=== PATIENT | male | born 1955 | race Caucasian/White ===

== ENCOUNTER → 2017-11-13 | Outpatient (CLI) | payer OTHER ==
[~2017-11-13] MED LIST: GABA-113 PO; IBUP-1050 PO; LSN25 PO; MULT-506 PO; OMEP20CA9 PO; PHEN-1043 PO; TOPI100T34 PO; TRAM-10 PO
[2017-11-13 12:49] LABS: BASO % 0.2 %; BASO ABS # 0.01 K/uL (0-0.2); EOS % 5.1 %; EOS ABS # 0.24 K/uL (0-0.5); HEMATOCRIT 43.4 % (42-52); HEMOGLOBIN 14.7 g/dL (14.0-18.0); IG# 0.01 K/uL (0.00-0.02); LYMPH ABS # 1.33 K/uL (1.2-3.4); MEAN CELL VOLUME 90.6 fL (80-100); MEAN CORPUSCULAR HEMOGLOBIN 30.7 pg (25-34); MEAN CORPUSCULAR HGB CONC 33.9 g/dl (32-36); MEAN PLATELET VOLUME 11.8 fL (7.4-10.4); MONO % 7.8 %; MONO ABS # 0.37 K/uL (0.11-0.59); NEUT % 58.7 %; NEUT ABS # 2.79 K/uL (1.4-6.5); PLATELET COUNT 159 K/uL (130-400); RED CELL DISTRIBUTION WIDTH CV 13.5 % (11.5-14.5); RED CELL DISTRIBUTION WIDTH SD 45.1 fL (36.4-46.3); WHITE BLOOD COUNT 4.75 K/uL (4.8-10.8)
[2017-11-13 13:26] LABS: HEMOGLOBIN A1C 7.6 % (4.5-5.6)
[2017-11-13 13:31] LABS: ALBUMIN 3.8 gm/dl (3.4-5.0); ALKALINE PHOSPHATASE 91 U/L (45-117); ALT/SGPT 27 U/L (12-78); AST/SGOT 15 U/L (15-37); BLOOD UREA NITROGEN 30 mg/dl (7-18); CALCIUM 8.3 mg/dl (8.5-10.1); CARBON DIOXIDE 26 mmol/L (21-32); CREATININE 1.09 mg/dl (0.60-1.40); GLUCOSE 163 mg/dl (70-99); POTASSIUM 4.1 mmol/L (3.5-5.1); SODIUM 139 mmol/L (136-145)
[2017-11-13 13:35] LABS: CHOLESTEROL 187 mg/dl (0-200); LDL CHOLESTEROL CALCULATED 114 mg/dl; TOTAL PROTEIN 6.7 gm/dl (6.4-8.2)
== END | disposition home or self-care (01) ==
LOC: C.LABBFT 09:18
PROVIDERS: ATTEND Physician Assistant Medical
DX: E11.9 Type 2 diabetes mellitus without complications (principal); Z12.5 Encounter for screening for malignant neoplasm of prostate

== ENCOUNTER → 2017-12-25 | Outpatient (CLI) | payer OTHER ==
[2017-12-25 16:45] LABS: BLOOD UREA NITROGEN 24 mg/dl (7-18)
== END | disposition home or self-care (01) ==
LOC: C.LABBFT 11:06
PROVIDERS: ATTEND Psychiatry & Neurology Neurology
DX: E11.9 Type 2 diabetes mellitus without complications (principal); G43.909 Migraine, unspecified, not intractable, without status migrainosus

== ENCOUNTER → 2017-12-27 | Outpatient (CLI) | payer OTHER ==
[~2017-12-27] MED LIST changes: +GADAVIST IV PRN
--- NOTE | 2017-12-27 10:24 | DIAGNOSTIC IMAGING REPORT ---
BRAIN COMBO CLINICAL HISTORY: R51 [id number] Arachnoid ] cyst COMPARISON STUDY: 11/19/2007 TECHNIQUE: Utilizing a 1.5 Olivia magnet and dedicated coil, multiplanar, multiecho imaging of the brain was performed pre and postcontrast administration. IV administration of 9.5 mL of Gadavist contrast was uneventful. FINDINGS: No change in the prior study. Diffusion images are considered negative for an acute ischemic event The small retrocerebellar CSF collection measuring 17 mm on the prior study is unchanged. Ventricular system is midline. There is no significant postcontrast enhancement. IMPRESSION: 1. Stable exam compared to the prior study of 2007. 2. Small residual retro cerebellar cerebellar CSF collection measuring 17 mm. 3. Study is otherwise entirely unremarkable and again unchanged from the prior study. The above report was generated using voice recognition software. It may contain grammatical, syntax or spelling errors. Electronically signed by: Tu Aguilera M.D. 12/27/2017 10:23 AM Dictated Date/Time: 12/27/2017 10:16 AM
== END | disposition home or self-care (01) ==
LOC: C.MRIBC 09:32
PROVIDERS: ATTEND Psychiatry & Neurology Neurology
DX: G93.0 Cerebral cysts (principal); R51 Headache

== ENCOUNTER 2021-09-11 06:53 | Inpatient (IN) ==
[2021-09-11] MEDS ORDERED: MoRPHine SULFATE 4 MG/ML 1 ML CARP\\VIAL IV STA ×2 (07:39→08:42)
[2021-09-11] MEDS ORDERED: ONDANSETRON INJ 2 MG/ML 2 ML VIAL IV STA (07:39)
--- NOTE | 2021-09-11 08:41 | Emergency Department Note ---
History of Present Illness General Chief complaint: Neck Injury/Pain Stated complaint: PAIN IN NECK AND ARM Time Seen by Provider: 09/11/21 07:32 Source: patient and family ( who is at bedside) Mode of arrival: ambulatory Limitations: no limitations History of Present Illness Maximum Pain Intensity: 8 This patient is a 66-year-old male who has had ongoing neck issues secondary to the discs. He is followed by Dr. Shah and will schedule of surgery for the last 15 months that keeps getting canceled due to Covid related issues. He has had significant pain over the last couple days at night he could not sleep at all. It radiates down his left arm. No new numbness weakness no fever chills no new trauma no chest pain shortness breath abdominal pain he has had the Covid vaccine. No lower extremity pain or swelling or numbness or weakness. The patient is are very frustrated and are asking to see Dr. Shah Home Medications Medication Instructions Recorded Confirmed Type xaifutczftkb-nec-nwvol acid-vit 1 tab PO QAM 11/05/20 09/11/21 History K-lycop 400 mcg-20 mcg-370 mcg tablet (One-A-Day Men's 50 Plus) oxycodone 5 mg tablet 5 mg PO Q8H PRN 08/10/21 09/11/21 History lisinopril 5 mg tablet 5 mg PO QAM 08/29/21 09/11/21 History metformin 500 mg tablet,extended 500 mg PO TID 08/29/21 09/11/21 History release 24hr omeprazole 20 mg capsule,delayed 20 mg PO QAM 08/29/21 09/11/21 History release rosuvastatin 10 mg tablet 10 mg PO HS 08/29/21 09/11/21 History Allergies Allergy/AdvReac Type Severity Reaction Status Date / Time No Known Allergies Allergy Verified 08/29/21 09:37 Past Med/Surg History Medical History Arachnoid cyst Per 11/11/20 cervical spine MRI: "Stable enlargement of the posterior extra-axial space of the posterior fossa. This could represent a prominent cisterna magna or retrocerebellar arachnoid cyst. This remains unchanged. " Chronic headaches Diabetes mellitus type II, controlled Hgb A1C 8.2 on 08/11/21 Metformin increased after 08/11/21 labs GERD (gastroesophageal reflux disease) Well controlled and stable Hyperlipidemia Hypertension Surgical History History of brain surgery Fluid cyst removed - around 2007 History of cardiac catheterization over 10 years ago - no stents needed History of cervical spinal surgery C5-6 fusion 1992 History of ear surgery History of inguinal hernia repair History of knee surgery History of nasal septoplasty History of shoulder surgery History of vasectomy Family History Father Colorectal cancer Hypertension Mother Hypertension Grandfather (Maternal) Myocardial infarction Grandfather (Paternal) Myocardial infarction Brother Blood dyscrasia Other Diabetes Social History Smoking Status: Never smoker Second Hand Exposure: No; Hx Alcohol Use: No Hx Substance Use: No Preferred Language: Greek Communication Ability: Effective Visual Impairment: No Limitations Hearing Ability: Normal Drag Down Required: No Beliefs That Will Affect Care: None marital status: Current Living Situation: Spouse current occupational status: employed current occupation: [employer] Feels Safe at Home: Yes caffeine: No Assistive Devices: Hearing Aid - Bilateral Review of Systems A total of 10 systems reviewed and were otherwise negative Physical Exam Vital Signs Vital Signs - 24 hr 09/11/21 06:58 09/11/21 07:58 09/11/21 08:00 Temperature 36.5 C Temperature Source Temporal Artery Scan Pulse Rate 101 H Pulse Rate [Finger] 98 H Respiratory Rate 18 16 Respiratory Effort / Characteristics Non-Labored Spontaneous Respiratory Depth Normal Respiratory Pattern Regular Blood Pressure 205/105 H Blood Pressure [Right Arm] 155/96 H Blood Pressure Mean 138 Blood Pressure Mean [Right Arm] 115 Blood Pressure Position Sitting Pulse Oximetry 97 98 Oxygen Delivery Method Room Air Room Air Room Air Sepsis Recent Fever Within 48 Hours No Sepsis New/Unexplained Change in Mental Status N/A Sepsis Action Taken by Nursing No Action Required 09/11/21 08:47 Temperature Temperature Source Pulse Rate Pulse Rate [Finger] Respiratory Rate Respiratory Effort / Characteristics Respiratory Depth Respiratory Pattern Blood Pressure Blood Pressure [Right Arm] Blood Pressure Mean Blood Pressure Mean [Right Arm] Blood Pressure Position Pulse Oximetry Oxygen Delivery Method Room Air Sepsis Recent Fever Within 48 Hours Sepsis New/Unexplained Change in Mental Status Sepsis Action Taken by Nursing General: Well developed well nourished middle-age male who appears in no acute distress, breathing comfortably on room air. Normal speech HEENT: Normal cephalic atraumatic. Pupils are equal round and reactive to light. Extraocular movements are intact. Oropharynx is pink with moist mucous membranes. No swelling of the mouth lips or tongue. Neck: Supple with a midline trachea. No meningeal signs or stiffness, no JVD or bruits. No Stridor. Chest: Clear to auscultation bilaterally. No wheezes or rhonchi. No increased work of breathing. Heart: Regular rate and rhythm without murmurs or gallops. Abdomen: Soft nontender, nondistended without rebound guarding or rigidity. Extremities: No cyanosis clubbing or edema. No calf tenderness or assymetry Spine/Back. Non tender to palpation. No CVA tenderness Skin: Good turgor without rashes. Neurologic exam: Cranial nerves two through 12 are intact. Motor and sensation are intact and symmetrical throughout. Course Administered Medications Discontinued Medications Morphine Sulfate (Morphine Sulfate 4 Mg/Ml 1 Ml Carp\\Vial) 4 mg IV NOW STA Stop: 09/11/21 07:40 Last Admin: 09/11/21 07:51 Dose: 4 mg Documented by: [id number] Morphine Sulfate (Morphine Sulfate 4 Mg/Ml 1 Ml Carp\\Vial) 4 mg IV NOW STA Stop: 09/11/21 08:43 Last Admin: 09/11/21 08:58 Dose: 4 mg Documented by: [id number] Ondansetron HCl (Ondansetron Inj 2 Mg/Ml 2 Ml Vial) 4 mg IV NOW STA Stop: 09/11/21 07:40 Last Admin: 09/11/21 07:51 Dose: 4 mg Documented by: [id number] Medical Decision Making Differential Diagnosis Cerival disk disease, infection, intractible pain, cord compression, fracture Medical Records Attestation: I reviewed the patient's medical records. Home Medications Current Medication List: was personally reviewed by me Laboratory Data Attestation: I reviewed the patient's lab results. Result diagrams: 09/11/21 07:55 09/11/21 07:55 Lab Results 09/11/21 09/11/21 09/11/21 Range/Units 07:55 07:55 07:55 WBC 6.65 (4.8-10.8) K/uL RBC 4.54 L (4.7-6.1) M/uL Hgb 13.7 L (14.0-18.0) g/dL Hct 41.8 L (42-52) % MCV 92.1 (80-100) fL MCH 30.2 (25-34) pg MCHC 32.8 (32-36) g/dL RDW Std Deviation 45.6 (36.4-46.3) fL RDW Coeff of Vadim 13.7 (11.5-14.5) % Plt Count 195 (130-400) K/uL MPV 11.8 H (7.4-10.4) fL Immature Gran % (Auto) 0.3 % Neut % (Auto) 65.5 % Lymph % (Auto) 18.9 % [place] % (Auto) 9.3 % Eos % (Auto) 5.7 % Baso % (Auto) 0.3 % Neut # (Auto) 4.35 (1.4-6.5) K/uL Lymph # (Auto) 1.26 (1.2-3.4) K/uL [place] # (Auto) 0.62 H (0.11-0.59) K/uL Eos # (Auto) 0.38 (0-0.5) K/uL Baso # (Auto) 0.02 (0-0.2) K/uL Immature Gran # (Auto) 0.02 (0.00-0.02) K/uL PT 9.8 (9.0-12.0) Seconds INR 1.0 (0.9-1.1) APTT 25.1 (21.0-31.0) Seconds PTT Ratio 1.0 Sodium 143 (136-145) mmol/L Potassium (3.5-5.1) mmol/L Chloride 109 H (98-107) mmol/L Carbon Dioxide 24 (21-32) mmol/L Anion Gap 10.0 (3-11) BUN 20 H (7-18) mg/dl Creatinine 1.17 (0.6-1.4) mg/dl Est Cr Clr Drug Dosing 72.0 ml/min Est GFR ( Amer) 75.4 ml/min Est GFR (Non-Af Amer) 65.0 ml/min BUN/Creatinine Ratio 16.8 (10-20) Glucose 245 H (70-99) mg/dl Calcium 8.8 (8.5-10.1) mg/dl Total Bilirubin 0.7 (0.2-1) mg/dl AST (15-37) U/L ALT 34 (12-78) Alkaline Phosphatase 86 (45-117) U/L Total Protein 6.7 (6.4-8.2) gm/dl Albumin 3.4 (3.4-5.0) gm/dl Globulin 3.3 (2.5-4.0) gm/dl Albumin/Globulin Ratio 1.0 (0.9-2) SARS-CoV-2, RNA, NAAT (NEGATIVE) 09/11/21 Range/Units 09:00 WBC (4.8-10.8) K/uL RBC (4.7-6.1) M/uL Hgb (14.0-18.0) g/dL Hct (42-52) % MCV (80-100) fL MCH (25-34) pg MCHC (32-36) g/dL RDW Std Deviation (36.4-46.3) fL RDW Coeff of Vadim (11.5-14.5) % Plt Count (130-400) K/uL MPV (7.4-10.4) fL Immature Gran % (Auto) % Neut % (Auto) % Lymph % (Auto) % [place] % (Auto) % Eos % (Auto) % Baso % (Auto) % Neut # (Auto) (1.4-6.5) K/uL Lymph # (Auto) (1.2-3.4) K/uL [place] # (Auto) (0.11-0.59) K/uL Eos # (Auto) (0-0.5) K/uL Baso # (Auto) (0-0.2) K/uL Immature Gran # (Auto) (0.00-0.02) K/uL PT (9.0-12.0) Seconds INR (0.9-1.1) APTT (21.0-31.0) Seconds PTT Ratio Sodium (136-145) mmol/L Potassium (3.5-5.1) mmol/L Chloride (98-107) mmol/L Carbon Dioxide (21-32) mmol/L Anion Gap (3-11) BUN (7-18) mg/dl Creatinine (0.6-1.4) mg/dl Est Cr Clr Drug Dosing ml/min Est GFR ( Amer) ml/min Est GFR (Non-Af Amer) ml/min BUN/Creatinine Ratio (10-20) Glucose (70-99) mg/dl Calcium (8.5-10.1) mg/dl Total Bilirubin (0.2-1) mg/dl AST (15-37) U/L ALT (12-78) Alkaline Phosphatase (45-117) U/L Total Protein (6.4-8.2) gm/dl Albumin (3.4-5.0) gm/dl Globulin (2.5-4.0) gm/dl Albumin/Globulin Ratio (0.9-2) SARS-CoV-2, RNA, NAAT NEGATIVE (NEGATIVE) ECG Data Attestation: I personally reviewed and interpreted this ECG as follows: Indication: + other (pre-op) Rate (beats per minute): 87 Rhythm: + normal sinus ECG Intervals/blocks: + Normal QRS, + Normal QT and + Normal MO ECG [place]: + Normal ECG ST segments: + Normal ST segments ECG Findings: + PACs; no PVCs Comparison ECG Date: from (08/11/21) Change: no significant change MDM Narrative This patient comes in complaining of worsening neck pain that radiates down his left arm. Its been chronic but has been getting worse. He is unfortunately be en unable to get surgery. Is given to the point where he is in severe pain at home and cannot sleep. He has no new neurologic deficit. IV access was established and he was given morphine 4 mg IV and Zofran 4 mg IV this helped but he did require additional morphine 4 mg I did talk to Dr. Shah who does want to admit him is can operate on him due to his significant pain and not doing well as an outpatient. I did do a preop blood work was also obtained as well as Covid testing and an EKG and there is no acute finding except for PACs. He will be admitted for pain management and operative care by Dr. Shah. Impression & Plan Neck pain, Cervical disc disease, Arm pain, left, Lab test negative for COVID- 19 virus Discharge Plan Visit Data Chief Complaint: Neck Injury/Pain Stated Complaint: PAIN IN NECK AND ARM ED Provider: Keshawn Metzger Discharge Problem: Neck pain, Cervical disc disease, Arm pain, left, Lab test negative for COVID- 19 virus Forms Stand Alone Forms: My [facility] [place] DIGITAL MEDIA Prescriptions Prescriptions: No Action One-A-Day Men's 50 Plus 400-20-370 mcg tablet 1 tab PO QAM RF: 0 oxycodone 5 mg tablet 5 mg PO Q8H PRN (Reason: Pain) RF: 0 omeprazole [Prilosec] 20 mg Capsule,Delayed Release(Dr/Ec) 20 mg PO QAM RF: 0 lisinopril 5 mg tablet 5 mg PO QAM RF: 0 rosuvastatin 10 mg tablet 10 mg PO HS RF: 0 metformin 500 mg tablet extended release 24hr 500 mg PO TID RF: 0 Referrals Referrals: Pippa Portillo CRNP [Primary Care Provider] -
[2021-09-11 09:01] LABS: Basophils # (auto) 0.02 K/uL (0-0.2); Basophils % (auto) 0.3 %; Eosinophils # (auto) 0.38 K/uL (0-0.5); Eosinophils % (auto) 5.7 %; Hematocrit (blood only) 41.8 % (42-52); Hemoglobin 13.7 g/dL (14.0-18.0); Immature Granulocytes # (auto) 0.02 K/uL (0.00-0.02); Immature Granulocytes % (auto) 0.3 %; Lymphocytes # (auto) 1.26 K/uL (1.2-3.4); Lymphocytes % (auto) 18.9 %; Mean Corpuscular Hemoglobin 30.2 pg (25-34); Mean Corpuscular Hgb Conc 32.8 g/dL (32-36); Mean Corpuscular Volume 92.1 fL (80-100); Mean Platelet Volume 11.8 fL (7.4-10.4); Monocytes # (auto) 0.62 K/uL (0.11-0.59); Monocytes % (auto) 9.3 %; Neutrophils # (auto) 4.35 K/uL (1.4-6.5); Neutrophils % (auto) 65.5 %; Platelet Count 195 K/uL (130-400); RDW Coefficient of Variation 13.7 % (11.5-14.5); RDW Standard Deviation 45.6 fL (36.4-46.3); Red Blood Count 4.54 M/uL (4.7-6.1); White Blood Count 6.65 K/uL (4.8-10.8)
[2021-09-11 09:08] LABS: Partial Thromboplastin Time 25.1 Seconds (21.0-31.0); Prothrombin Time 9.8 Seconds (9.0-12.0)
[2021-09-11 09:22] LABS: Albumin Level 3.4 gm/dl (3.4-5.0); BUN Creatinine Ratio 16.8 (10-20); Calcium 8.8 mg/dl (8.5-10.1); Est GFR (African American) 75.4 ml/min
[2021-09-11 09:39] LABS: Bilirubin,Total 0.7 mg/dl (0.2-1); Globulin 3.3 gm/dl (2.5-4.0); Total Protein 6.7 gm/dl (6.4-8.2)
[2021-09-11] MEDS ORDERED: ONDANSETRON INJ 2 MG/ML 2 ML VIAL IV PRN (11:12)
[2021-09-11] MEDS ORDERED: LORazepam 0.5 MG/1 ML VIAL IV PRN (11:12)
[2021-09-11] MEDS ORDERED: ACETAMINOPHEN 500 MG TAB PO PRN (11:12)
[2021-09-11] MEDS ORDERED: ONDANSETRON 4 MG OD TAB PO PRN (11:12)
[2021-09-11] MEDS ORDERED: HYDROmorphone INJ 1 MG/ML SYRINGE IV PRN (11:12)
[2021-09-11] MEDS ORDERED: METOCLOPRAMIDE HCL INJ 5 MG/ML 2 ML VIAL IV PRN (11:12)
[2021-09-11] MEDS ORDERED: LORazepam 0.5 MG TAB PO PRN (11:12)
[2021-09-11] MEDS ORDERED: ALUMINUM/MAGNESIUM SUSP 30 ML UDC PO PRN (11:12)
[2021-09-11] MEDS ORDERED: PROMETHAZINE HCL 12.5 MG in SODIUM CHLORIDE 0.9% 50 ML IV PRN (11:12)
[2021-09-11] MEDS ORDERED: MAGNESIUM HYDROXIDE SUSP 30 ML UDC PO PRN (11:12)
[2021-09-11] MEDS ORDERED: PHARMACY GLYCEMIC MGMT CONSULT PRN (11:12)
[2021-09-11] MEDS ORDERED: diphenhydrAMINE Capsule 25 MG CAP PO PRN (11:12)
[2021-09-11] MEDS ORDERED: hydrOXYzine HCl 25 MG TAB PO PRN (11:12)
[2021-09-11] MEDS ORDERED: HYDROmorphone INJ 0.5 MG/0.5 ML SYR IV PRN (11:12)
[2021-09-11] MEDS ORDERED: NALOXONE HCL 0.4 MG/1 ML VIAL/CARP IV PRN (11:12)
[2021-09-11] MEDS ORDERED: oxyCODONE HCL IR 5 MG TAB (IMMEDIATE RELEASE) PO PRN (11:12)
[2021-09-11] MEDS ORDERED: ACETAMINOPHEN 1,000 MG/100 ML VIAL IV PRN (11:12)
[2021-09-11] MEDS ORDERED: traMADol HCL 50 MG TABLET PO PRN (11:12)
[2021-09-11] MEDS ORDERED: LANTUS PER UNIT CHARGE SQ STA (11:39)
[2021-09-11] MEDS ORDERED: INSULIN GLARGINE SOLOSTAR 100 UNITS/ML 3 ML PEN SC STA ×2 (11:40→12:32)
[2021-09-11] MEDS ORDERED: CARBOHYDRATES FOR HYPOGLYCEMIA PO PRN (11:45)
[2021-09-11] MEDS ORDERED: GLUCOSE 40% GEL 15 GM TUBE PO PRN (11:45)
[2021-09-11] MEDS ORDERED: GLUCOSE 10 TABS/TUBE PO PRN (11:45)
[2021-09-11] MEDS ORDERED: DEXTROSE 50% 50 ML SYRINGE IV PRN (11:45)
[2021-09-11] MEDS ORDERED: GLUCAGON FOR INJ 1 MG VIAL IM PRN (11:45)
[2021-09-11] MEDS: INSULIN ASPART PER UNIT SC SCH ×3 (12:47→21:03)
[2021-09-11] MEDS: MULTIVITAMIN TAB PO SCH (12:48)
[2021-09-11] MEDS: lisinopril 5 MG TAB PO SCH (12:48)
[2021-09-11] MEDS: PANTOprazole 40 MG TAB PO SCH (12:48)
[2021-09-11] MEDS: SODIUM CHLORIDE 0.9% 1000ML 1,000 ML IV SCH (13:00)
--- NOTE | 2021-09-11 14:41 | Pharmacy Report ---
Pharmacy Glycemic Short Note 2 - Date of Service September 11, 2021 - Glycemic Short BSG Results (Last 24 hours): 09/11/21 09/11/21 07:55 12:23 Glucose 245 H POC Glucose 138 H OUTPATIENT ANTIDIABETIC REGIMEN: * Metformin 500 mg PO TIDM * HbA1c = 8.2% (08/11/21) ASSESSMENT: * 66 yo M admitted secondary to back pain. Plan is for patient to go to OR tomorrow morning with Dr. Shah. T2DM diet ordered for now but will be NPO after midnight. Pharmacy has been consulted to assist with perioperative insulin management. * BSG at lunch was 138 mg/dL. * Provided small basal dose since patient was eating lunch. * Novolog started based on weight/stress of 2. * Goal range of 110-140 mg/dL. * Hold outpatient oral T2DM meds. PLAN FOR INPATIENT GLYCEMIC CONTROL: * Hold outpatient oral diabetes medications * Basal insulin * Lantus 15 units SC x 1 * Bolus insulin * NovoLog per scale ACHS or Q6hrs while NPO * Goal Range: Low 110 mg/dL - High 140 mg/dL * Correction Factor: 25 mg/dL/unit * Nutritional / Prandial insulin per carb ratio of 1 unit per 8 grams CHO consumed PLAN FOR DISCHARGE: * To be determined
[2021-09-11] MEDS: ROSUVASTATIN CALCIUM 10 MG TAB PO SCH (21:06)
--- NOTE | 2021-09-11 22:05 | Electrocardiogram Report ---
Test Reason : Blood Pressure : / mmHG Vent. Rate : 087 BPM Atrial Rate : 087 BPM P-R Int : 150 ms QRS Dur : 090 ms QT Int : 376 ms P-R-T Axes : 022 004 004 degrees QTc Int : 452 ms Sinus rhythm with Premature atrial complexes Otherwise normal ECG When compared with ECG of 11-AUG-2021 11:22, No significant change was found Confirmed by Garo Cornell ([id number]) on 09/11/2021 10:04:55 PM Referred By: REFERRED SELF Confirmed By:Garo Cornell
[2021-09-12] MEDS: SODIUM CHLORIDE 0.9% 1000ML 1,000 ML IV SCH ×4 (02:17→22:04)
[2021-09-12] MEDS ORDERED: ceFAZolin 2000MG 2,000 MG/15 ML SYR IV SCH (06:00)
[2021-09-12] MEDS: INSULIN ASPART PER UNIT SC SCH ×5 (06:06→23:50)
[2021-09-12] MEDS ORDERED: fentaNYL citrate 100 MCG/2 ML VIAL ONE (07:24)
[2021-09-12] MEDS ORDERED: MIDAZOLAM HCL 1 MG/ML 2ML VIAL ONE (07:24)
[2021-09-12] MEDS ORDERED: HYDROmorphone INJ 2 MG/ML SYR/VIAL ONE (07:27)
[2021-09-12] MEDS ORDERED: ONDANSETRON INJ 2 MG/ML 2 ML VIAL ONE (07:28)
[2021-09-12] MEDS ORDERED: SUCCINYLCHOLINE CHLORIDE 20 MG/ML 10 ML VIAL IV ONE (07:28)
[2021-09-12] MEDS ORDERED: ROCURONIUM BROMIDE 10 MG/ML 5 ML VIAL IV ONE (07:28)
[2021-09-12] MEDS ORDERED: DEXAMETHASONE SOD INJ 4 MG/ML VIAL ONE (07:28)
--- NOTE | 2021-09-12 07:52 | History & Physical Bridge Note ---
Date of Service September 12, 2021 History & Physical Bridge Note I have examined the patient, reviewed the History & Physical and in the interval since the performance of the History & Physical I have noted the following changes of clinical significance: Anterior cervical decompression fusion C4 C5-C6-C7.
--- NOTE | 2021-09-12 07:55 | History & Physical Report ---
Date of Service September 12, 2021 Assessment & Plan (1) Herniation of cervical intervertebral disc with radiculopathy: Plan: Anterior cervical discectomy and fusion C4 C5-C6-C7. Admission and Anticipated Discharge Date Admission Date: September 11, 2021 History of Present Illness Chief Complaint: Neck and bilateral arm pain Primary Care Provider: LUIS Heaton This is a 66-year-old male who presents with chronic persistent cervical radiculopathy. After failing course of nonoperative care is here for surgical invention. Allergies Allergy/AdvReac Type Severity Reaction Status Date / Time No Known Allergies Allergy Verified 08/29/21 09:37 Home Medications Medication Instructions Recorded Confirmed Type zbpcrzqlpjhe-xpb-gqvos acid-vit 1 tab PO QAM 11/05/20 09/11/21 History K-lycop 400 mcg-20 mcg-370 mcg tablet (One-A-Day Men's 50 Plus) oxycodone 5 mg tablet 5 mg PO Q8H PRN 08/10/21 09/11/21 History lisinopril 5 mg tablet 5 mg PO QAM 08/29/21 09/11/21 History metformin 500 mg tablet,extended 500 mg PO TID 08/29/21 09/11/21 History release 24hr omeprazole 20 mg capsule,delayed 20 mg PO QAM 08/29/21 09/11/21 History release rosuvastatin 10 mg tablet 10 mg PO HS 08/29/21 09/11/21 History Past Med/Surg History Medical History Arachnoid cyst Per 11/11/20 cervical spine MRI: "Stable enlargement of the posterior extra- axial space of the posterior fossa. This could represent a prominent cisterna magna or retrocerebellar arachnoid cyst. This remains unchanged. " Chronic headaches Diabetes mellitus type II, controlled Hgb A1C 8.2 on 08/11/21 Metformin increased after 08/11/21 labs GERD (gastroesophageal reflux disease) Well controlled and stable Hyperlipidemia Hypertension Surgical History History of brain surgery Fluid cyst removed - around 2007 History of cardiac catheterization over 10 years ago - no stents needed History of cervical spinal surgery C5-6 fusion 1992 History of ear surgery History of inguinal hernia repair History of knee surgery History of nasal septoplasty History of shoulder surgery History of vasectomy Family History Father Colorectal cancer Hypertension Mother Hypertension Grandfather (Maternal) Myocardial infarction Grandfather (Paternal) Myocardial infarction Brother Blood dyscrasia Other Diabetes Social History Smoking Status: Never smoker Second Hand Exposure: No; Hx Alcohol Use: No Hx Substance Use: No Preferred Language: Singaporean Communication Ability: Effective Visual Impairment: No Limitations Hearing Ability: Normal Bag Bleacher Required: No Beliefs That Will Affect Care: None marital status: Current Living Situation: Spouse current occupational status: employed current occupation: [employer] Feels Safe at Home: Yes Safety Concerns: Feels Safe At This Time caffeine: No Assistive Devices: None Physical Exam Physical Exam: Patient is alert and oriented Heart regular in rhythm Lungs clear Results & Data ([facility]) Vital Signs (Past 12 Hours) Vital Signs Temp Pulse Resp BP Pulse Ox Pulse Ox 09/12/21 06:54 36.6 C 82 18 181/81 H 97 09/11/21 23:30 95 09/11/21 22:56 36.4 C L 75 16 169/85 H 95 Code Status & VTE Plan VTE Prophylaxis Plan VTE Prophylaxis will be ordered: Yes
[2021-09-12] MEDS ORDERED: ONDANSETRON INJ 2 MG/ML 2 ML VIAL IV PRN ×2 (08:00→12:30)
[2021-09-12] MEDS ORDERED: ATROPINE SULFATE 0.1 MG/ML 10ML SYR IV PRN (08:00)
[2021-09-12] MEDS ORDERED: ePHEDrine sulfate 50 MG/ML AMP IV PRN (08:00)
[2021-09-12] MEDS ORDERED: HYDROmorphone INJ 1 MG/ML SYRINGE IV PRN (08:00)
[2021-09-12] MEDS ORDERED: FAMOTIDINE/PF 20 MG/2 ML VIAL IV ONE (08:20)
[2021-09-12] MEDS ORDERED: SUGAMMADEX SODIUM 200 MG/2 ML VIAL IV ONE (08:20)
--- NOTE | 2021-09-12 08:37 | Pharmacy Report ---
Pharmacy Glycemic Short Note 2 - Date of Service September 12, 2021 - Glycemic Short BSG Results (Last 24 hours): 09/11/21 09/11/21 09/11/21 07:55 12:23 17:07 Glucose 245 H POC Glucose 138 H 87 09/11/21 09/12/21 20:37 05:51 Glucose POC Glucose 137 H 98 OUTPATIENT ANTIDIABETIC REGIMEN: * Metformin 500 mg PO TIDM * HbA1c = 8.2% (08/11/21) ASSESSMENT: 09/12 * Fasting BSG 93 this AM w/ 15 units Lantus on board - will wait until patient is post-op to order further basal insulin * Pt is currently NPO for planned discectomy/fusion today * Will need to be vigilant for use of steroid pita-op and post-op as this will influence insulin choices and doses * OK to continue current insulin doses, will reassess post-po 09/11 * 66 yo M admitted secondary to back pain. Plan is for patient to go to OR tomorrow morning with Dr. Shah. T2DM diet ordered for now but will be NPO after midnight. Pharmacy has been consulted to assist with perioperative insulin management. * BSG at lunch was 138 mg/dL. * Provided small basal dose since patient was eating lunch. * Novolog started based on weight/stress of 2. * Goal range of 110-140 mg/dL. * Hold outpatient oral T2DM meds. PLAN FOR INPATIENT GLYCEMIC CONTROL: * Hold outpatient oral diabetes medications * Basal insulin * to be determined post-op * Bolus insulin * NovoLog per scale ACHS or Q6hrs while NPO * Goal Range: Low 110 mg/dL - High 140 mg/dL * Correction Factor: 25 mg/dL/unit * Nutritional / Prandial insulin per carb ratio of 1 unit per 8 grams CHO consumed PLAN FOR DISCHARGE: * To be determined
[2021-09-12] MEDS ORDERED: METOCLOPRAMIDE HCL INJ 5 MG/ML 2 ML VIAL ONE (09:20)
[2021-09-12] MEDS ORDERED: FLOSEAL HEMOSTATIC MATRIX 10ML TOP ONE (09:28)
[2021-09-12] MEDS ORDERED: LARYING-O-JET KIT (LTA) ONE (09:40)
--- NOTE | 2021-09-12 09:55 | Hospitalist Consultation ---
Date of Consultation September 12, 2021 Assessment & Plan (1) Herniation of cervical intervertebral disc with radiculopathy: Now s/o ACDF C4-7 w/ Dr. Shah -post op care as per Ortho SP[facility] pain control, bowel regimen -nausea meds prn -check CBC, BMP in AM -continue IVFs for now, clears diet (2) Hypertension: BP elevated over usual due to pain -treat pain -give hydralazine 5mg IV x 1 now -continue home lisinopril -continue to follow BPs (3) Diabetes mellitus: expect hyperglycemia from dexamethsone Pharmacy consulted on admission insulin basal and bolus ordered most recent A1C 8.2%-not excellent control, f/u with PCP (4) Hyperlipidemia: continue statin (5) GERD (gastroesophageal reflux disease): continue PPI (6) Chronic headaches: pain control prn DVT proph-SCDs Dispo-continued stay med/surg, will follow along History of Present Illness Reason for Consultation: Medical Management Requesting Physician: Dr. Shah Attending Physician: Bernard Shah, DO History of Present Illness This pt is a 66 yo male with a a h/o Type 2 DM, HLD, HTN, GERD, chronic headaches, chronic bronchitis, Vitamin D deficiency and h/o kidney stones who is here with intractable cervical radiculopathy, now going for ACDF C4-7 today. I saw him after return from his surgery and he is having a bad headache, elevated BP, some nausea, and a sore throat from the ETT. Otherwise no CP or SOB. Last BM this AM. Allergies Allergy/AdvReac Type Severity Reaction Status Date / Time No Known Allergies Allergy Verified 08/29/21 09:37 Home Medications Medication Instructions Recorded Confirmed Type [id number] acid-vit 1 tab PO QAM 11/05/20 09/11/21 History K-lycop 400 mcg-20 mcg-370 mcg tablet (One-A-Day Men's 50 Plus) oxycodone 5 mg tablet 5 mg PO Q8H PRN 08/10/21 09/11/21 History lisinopril 5 mg tablet 5 mg PO QAM 08/29/21 09/11/21 History metformin 500 mg tablet,extended 500 mg PO TID 08/29/21 09/11/21 History release 24hr omeprazole 20 mg capsule,delayed 20 mg PO QAM 08/29/21 09/11/21 History release rosuvastatin 10 mg tablet 10 mg PO HS 08/29/21 09/11/21 History oxycodone 5 mg tablet 5 mg PO Q6H PRN #20 tab 09/12/21 Rx tramadol 50 mg tablet 50 mg PO Q6H PRN #20 tab 09/12/21 Rx Patient History Medical History (Updated 09/12/21 @ 09:53 by Diann Aguirre MD) Arachnoid cyst Per 11/11/20 cervical spine MRI: "Stable enlargement of the posterior extra-ax ial space of the posterior fossa. This could represent a prominent cisterna magna or retrocerebellar arachnoid cyst. This remains unchanged. " Chronic headaches Diabetes mellitus Diabetes mellitus type II, controlled Hgb A1C 8.2 on 08/11/21 Metformin increased after 08/11/21 labs GERD (gastroesophageal reflux disease) Well controlled and stable Hyperlipidemia Hypertension Surgical History History of brain surgery Fluid cyst removed - around 2007 History of cardiac catheterization over 10 years ago - no stents needed History of cervical spinal surgery C5-6 fusion 1992 History of ear surgery History of inguinal hernia repair History of knee surgery History of nasal septoplasty History of shoulder surgery History of vasectomy Family History Father Colorectal cancer Hypertension Mother Hypertension Grandfather (Maternal) Myocardial infarction Grandfather (Paternal) Myocardial infarction Brother Blood dyscrasia Other Diabetes Social History Smoking Status: Never smoker Second Hand Exposure: No; Hx Alcohol Use: No Hx Substance Use: No Preferred Language: Taiwanese Communication Ability: Effective Visual Impairment: No Limitations Hearing Ability: Normal Gold Marker Required: No Beliefs That Will Affect Care: None marital status: Current Living Situation: Spouse current occupational status: employed current occupation: [employer] Feels Safe at Home: Yes Safety Concerns: Feels Safe At This Time caffeine: No Assistive Devices: None Review of Systems Review of Systems: All systems reviewed & are unremarkable except as noted in HPI & below Physical Exam Constitutional: WD/WN, vitals as above Eyes: + anicteric sclerae Neck: trachea midline, no thyromegaly JJ drain and dressing on anterior neck, serosang fluid in drain Respiratory: normal respiratory effort, lungs clear to auscultation Cardiovascular: RRR, no murmur, no edema Chest (Breasts): Chest: normal inspection of chest Gastrointestinal (Abdomen): normal bowel sounds, soft, nontender, no hepatosplenomegaly Musculoskeletal: Extremities: extremities normal to inspection; no cyanosis and no clubbing Skin: no rashes, warm and dry Neurologic: moves all extremities and awake; no focal motor deficits Psychiatric: A+Ox3, euthymic affect Lymphatic: no lymphedema Results & Data Results & Data ([facility]) Vital Signs (Past 12 Hours) Vital Signs Temp Pulse Resp BP Pulse Ox Pulse Ox 09/12/21 08:02 36.6 C 76 18 194/103 H 95 09/12/21 06:54 36.6 C 82 18 181/81 H 97 09/11/21 23:30 95 09/11/21 22:56 36.4 C L 75 16 169/85 H 95 Laboratory Results Preop labs reviewed Diagnostic Findings Preop CXR reviewed ECG Additional Comments: Preop ECG with NSR, PACs, no ischemic changes PG Care Time/CCT Total # of Minutes Spent Total Time Spent with Patient: Total time spent is greater than 50% in coordination of care (as documented) at patient's floor/unit and/or counseling patient: Coding Level of Care Code 64551 Inpt Consult Level 3 Diagnoses Herniation of cervical intervertebral disc with radiculopathy M50.10 Hypertension I10 Diabetes mellitus E11.9 Hyperlipidemia E78.5 GERD (gastroesophageal reflux disease) K21.9 Chronic headaches R51
--- NOTE | 2021-09-12 10:26 | Operative Report ---
Post Operative Report Pre & Post Diagnosis Operation Date: 09/12/21 08:50 Pre-Op Diagnosis: Herniation of Cervical Intervertebral Disc with Radiculopathy C4-C5, C6-C7; Previous Fusion C5-C6 Post-Op Diagnosis: Herniation of Cervical Intervertebral Disc with Radiculopathy C4-C5, C6-C7; Previous Fusion C5-C6 I identified the patient and participated in the time-out.: Yes Procedure Operation Date: 09/12/21 08:50 Actual Procedures #1 anterior cervical discectomy with bilateral foraminotomies C4-5 C6-7. #2 anterior cervical arthrodesis C4-5 C6-C7. #3 placement of 8 mm spiral cage at C4-C5 and 7 mm cage at C6-C7 both filled with I factor. #4 application of louis plate and screws from C4-C7. Surgeon Bernard Shah, DO Cannery Worker Delphine Knox Estimated Blood Loss 10 Findings Consistent with Post-Op Diagnosis Specimens None Indications This is a 66-year-old male who presents with above-mentioned diagnosis after failing course of nonoperative care having severe radiculopathy is here for urgent surgery. Description of Procedure Patient was met with identified informed consent obtained. Patient was then taken to the operative suite underwent a patient placed in supine position on a Patricio table with head Willis quality control inspector heading. All bony prominences well-padded eyes inspected to ensure no external pressure placed upon them. This point the anterior cervical spine was prepped and draped in a sterile fashion. I then created a longitudinal incision along the right anterior aspect of the cervical spine. Blunt dissection was then carried out down to and exposing the anterior cervical spine from C4 to see 7. Self-retaining retractors placed. Then performed a complete discectomy of C4-C5 out to the uncovertebral's bilaterally. Blain distractor pins utilized to assist in visualization. Removed all posterior annular fibers longitudinal ligament bilateral foraminotomies performed. Endplates then burred to subcortical bleeding bone and an 8 mm Spira cage filled with I factor tapped in position. I then proceeded to C6-C7. Again complete discectomy performed out to the uncovertebral joints bilaterally. Blain distracting pins again utilized. Removed all posterior annular fibers longitudinal ligament bilateral foraminotomies performed. The endplates were then burred to subcortical being bone and a 7 mm spiral cage filled with I factor tapped in position. Distracting apparatus was removed all anterior osteophytes burred to a smooth cortical surface of 5 complete and screws applied with the assistance of fluoroscopy. The incision was then copiously irrigated explored to ensure no damage to surrounding structures remaining bleeding. 10 round JJ drain inserted. The incision was then closed with 1 Vicryl to fascia 2-0 Vicryl subcutaneously and 4 Monocryl for final skin closure. Steri-Strip sterile dressings placed. Patient will continue PACU stable condition. Please note spinal cord monitoring was utilized throughout the procedure no changes noted. Lastly Delphine Knox was present at the entire procedure and all the patient positioning complex portions of the surgery and final skin closure. I attest to the content of the Intraoperative Record and any orders documented therein. Any exceptions are noted below.
--- NOTE | 2021-09-12 10:59 | Fluoroscopy Report ---
FL cervical 2-3V CLINICAL HISTORY: C4-7 ACDF. Intraoperative fluoroscopic assistance COMPARISON STUDY: None. FLUOROSCOPY TIME: 12 seconds. FINDINGS: 2 fluoroscopic spot images of the cervical spine demonstrate anterior cervical discectomy a nd fusion from C4 through C7. The hardware appears intact. IMPRESSION: Fluoroscopic assistance provided for C4-C7 ACDF. ACT 112: Negative or not required by law. Electronically signed by: Jesus Alberto Houser M.D. 09/12/2021 10:57 AM
[2021-09-12] MEDS ORDERED: LABETALOL HCL IV 5 MG/ML 20ML IV ONE (11:18)
[2021-09-12] MEDS: LABETALOL HCL IV 5 MG/ML 20ML IV PRN ×2 (11:23→12:03)
[2021-09-12] MEDS: fentaNYL citrate 100 MCG/2 ML VIAL IV PRN ×2 (11:41→11:47)
[2021-09-12] MEDS ORDERED: DO NOT ADMINISTER PNEUMOCOCCAL VACCINE PRN (12:30)
[2021-09-12] MEDS ORDERED: ONDANSETRON 4 MG OD TAB PO PRN (12:30)
[2021-09-12] MEDS ORDERED: NALOXONE HCL 0.4 MG/1 ML VIAL/CARP IV PRN (12:30)
[2021-09-12] MEDS ORDERED: METOCLOPRAMIDE HCL INJ 5 MG/ML 2 ML VIAL IV PRN (12:30)
[2021-09-12] MEDS ORDERED: traMADol HCL 50 MG TABLET PO PRN (12:30)
[2021-09-12] MEDS ORDERED: SOD PHOSPHATE/SOD BIPHOSPHATE ENEMA 132 ML BTL PR PRN (12:30)
[2021-09-12] MEDS ORDERED: MAGNESIUM HYDROXIDE SUSP 30 ML UDC PO PRN (12:30)
[2021-09-12] MEDS ORDERED: ACETAMINOPHEN 1,000 MG/100 ML VIAL IV PRN (12:30)
[2021-09-12] MEDS ORDERED: PHARMACY GLYCEMIC MGMT CONSULT PRN (12:30)
[2021-09-12] MEDS ORDERED: ACETAMINOPHEN 500 MG TAB PO PRN (12:30)
[2021-09-12] MEDS ORDERED: diphenhydrAMINE Capsule 25 MG CAP PO PRN (12:30)
[2021-09-12] MEDS ORDERED: LORazepam 0.5 MG/1 ML VIAL IV PRN (12:30)
[2021-09-12] MEDS ORDERED: bisacodyL 10 MG SUPP PR PRN (12:30)
[2021-09-12] MEDS ORDERED: RACEPINEPHRINE 2.25% NEBU SOLN 0.5 ML VIAL INH PRN (12:30)
[2021-09-12] MEDS ORDERED: LORazepam 0.5 MG TAB PO PRN (12:30)
[2021-09-12] MEDS ORDERED: ALUMINUM/MAGNESIUM SUSP 30 ML UDC PO PRN (12:30)
[2021-09-12] MEDS ORDERED: dexAMETHasone 8 MG in SYRINGE 0 ML IV PRN (12:30)
[2021-09-12] MEDS ORDERED: DO NOT ADMINISTER FLU VACCINE PRN (12:30)
[2021-09-12] MEDS ORDERED: HYDROmorphone INJ 0.5 MG/0.5 ML SYR IV PRN (12:30)
[2021-09-12] MEDS ORDERED: hydrOXYzine HCl 25 MG TAB PO PRN (12:30)
[2021-09-12] MEDS ORDERED: FAMOTIDINE 20 MG TAB PO PRN (12:30)
[2021-09-12] MEDS ORDERED: PROMETHAZINE HCL 12.5 MG in SODIUM CHLORIDE 0.9% 50 ML IV PRN (12:30)
[2021-09-12] MEDS ORDERED: INSULIN GLARGINE SOLOSTAR 100 UNITS/ML 3 ML PEN SC ONE (13:00)
[2021-09-12] MEDS: MULTIVITAMIN TAB PO SCH (13:06)
[2021-09-12] MEDS: lisinopril 5 MG TAB PO SCH (13:06)
[2021-09-12] MEDS: PANTOprazole 40 MG TAB PO SCH (13:06)
[2021-09-12] MEDS ORDERED: hydrALAZINE HCL 20 MG/ML VIAL IV ONE (15:16)
--- NOTE | 2021-09-12 15:41 | Anesthesiology Progress Note ---
Date of Service September 12, 2021 Anesthesia Post Procedure Vital Signs Vital Signs: Temp Pulse Pulse Resp BP Pulse Ox Pulse Ox 09/12/21 15:20 36.5 C 92 H 12 180/92 H 97 09/12/21 14:20 36.7 C 97 H 14 174/103 H 97 09/12/21 13:20 36.7 C 94 H 16 183/88 H 95 09/12/21 12:55 84 20 96 09/12/21 12:50 36.2 C L 82 14 177/104 H 94 09/12/21 12:20 36.7 C 90 14 165/94 H 96 09/12/21 12:00 36.3 C L 92 H 15 183/89 H 96 09/12/21 11:50 86 12 176/98 H 96 09/12/21 11:40 36.2 C L 91 H 13 158/95 H 98 09/12/21 11:30 82 12 167/98 H 97 09/12/21 11:20 36.1 C L 88 12 182/97 H 97 09/12/21 11:10 90 13 184/92 H 98 09/12/21 11:00 35.9 C L 91 H 14 182/90 H 97 09/12/21 10:50 89 14 193/86 H 96 09/12/21 10:40 35.8 C L 92 H 15 188/94 H 96 09/12/21 08:02 36.6 C 76 18 194/103 H 95 09/12/21 06:54 36.6 C 82 18 181/81 H 97 09/11/21 23:30 95 09/11/21 22:56 36.4 C L 75 16 169/85 H 95 Pain Intensity Neck: Pain Intensity: 8 Head: Pain Intensity: 8 Transfer of Care Handoff Completed per policy Notes Mental Status: alert / awake / arousable and participated in evaluation Patient Amnestic to Procedure: Yes Nausea / Vomiting: adequately controlled Pain: adequately controlled Airway Patency, RR, SpO2: stable & adequate BP & HR: stable & adequate Hydration State: stable & adequate Anesthetic Complications: no major complications apparent and Pt Satisfied with anesthetic care
[2021-09-12] MEDS ORDERED: COUGH DROP (SUGAR FREE) LOZ 24 LOZ/1 BOX BUCCAL PRN (15:53)
[2021-09-12] MEDS: HYDROmorphone INJ 1 MG/ML SYRINGE IV PRN ×3 (15:56→23:04)
[2021-09-12] MEDS: ceFAZolin 2000MG 2,000 MG/15 ML SYR IV SCH (17:16)
[2021-09-12] MEDS ORDERED: DOCUSATE SODIUM/SENNA 50/8.6MG TAB PO SCH (21:00)
[2021-09-12] MEDS: oxyCODONE HCL IR 5 MG TAB (IMMEDIATE RELEASE) PO PRN (21:08)
[2021-09-12] MEDS: ROSUVASTATIN CALCIUM 10 MG TAB PO SCH (21:08)
[2021-09-13] MEDS: ceFAZolin 2000MG 2,000 MG/15 ML SYR IV SCH (00:32)
[2021-09-13] MEDS: INSULIN ASPART PER UNIT SC SCH ×2 (04:02→09:02)
[2021-09-13] MEDS: oxyCODONE HCL IR 5 MG TAB (IMMEDIATE RELEASE) PO PRN (05:42)
[2021-09-13] MEDS ORDERED: POLYETHYLENE (MIRALAX) 17 GM PACK PO SCH (06:00)
[2021-09-13 06:54] LABS: Eosinophils # (auto) 0.11 K/uL (0-0.5); Eosinophils % (auto) 1.4 %; Hematocrit (blood only) 38.7 % (42-52); Hemoglobin 12.7 g/dL (14.0-18.0); Immature Granulocytes # (auto) 0.01 K/uL (0.00-0.02); Immature Granulocytes % (auto) 0.1 %; Lymphocytes % (auto) 14.2 %; Mean Corpuscular Hemoglobin 30.1 pg (25-34); Mean Corpuscular Hgb Conc 32.8 g/dL (32-36); Mean Corpuscular Volume 91.7 fL (80-100); Mean Platelet Volume 11.2 fL (7.4-10.4); Monocytes # (auto) 0.65 K/uL (0.11-0.59); Monocytes % (auto) 8.4 %; Neutrophils # (auto) 5.88 K/uL (1.4-6.5); Neutrophils % (auto) 75.9 %; Platelet Count 163 K/uL (130-400); RDW Coefficient of Variation 13.7 % (11.5-14.5); RDW Standard Deviation 45.2 fL (36.4-46.3); Red Blood Count 4.22 M/uL (4.7-6.1); White Blood Count 7.75 K/uL (4.8-10.8)
[2021-09-13 07:33] LABS: BUN Creatinine Ratio 13.3 (10-20); Calcium 8.3 mg/dl (8.5-10.1); Creatinine Clr Calc Pharmacy 91.3 ml/min; Est GFR (African American) 100.8 ml/min; Potassium 3.2 mmol/L (3.5-5.1)
[2021-09-13] MEDS: HYDROmorphone INJ 1 MG/ML SYRINGE IV PRN (07:35)
--- NOTE | 2021-09-13 08:31 | Discharge Summary ---
Date of Service September 13, 2021 Admission HPI Per Admitting Provider This is a 66-year-old male who presents with chronic persistent cervical radiculopathy. After failing course of nonoperative care is here for surgical invention. Principal Diagnosis Cervical radiculopathy Discharge Data Allergies Allergy/AdvReac Type Severity Reaction Status Date / Time No Known Allergies Allergy Verified 08/29/21 09:37 Consultations 09/11/21 08:51 ED Decision to Admit Stat 09/11/21 11:12 Consult Internal Medicine Routine Procedures Performed Operation Date: 09/12/21 08:50 Actual Procedures p Anterior Cervical Discectomy Fusion C4-C5, C6-C7 with Application of IFactor Bone Graft and Spinal Cord Monitoring(Not Applicable) - Bernard Shah DO Ordered Studies 09/12/21 [place] cervical 2-3V Routine Hospital Course (1) Herniation of cervical intervertebral disc with radiculopathy: Patient was admitted with severe cervical radiculopathy underwent surgery the following day. He tolerated surgery well was taken to orthopedic floor postoperative. Postop day #1 he was swallowing without difficulty. No hoarseness. Arm symptoms markedly improved. JJ drain decreasing appropriately. Excellent strength testing. Subsequent discharge home. Discharge orders instructions were on the chart for further review. Total Time Total Time Spent Total Time Spent (In Minutes): 20 minutes Discharge Plan Discharge Items Patient Disposition: Home - Self-Care Reason For Visit: PAIN IN NECK AND ARM Discharge Diagnosis: Cervical spinal stenosis with radiculopathy Activity: As commented below Non-emergency contact: Primary Care Provider Call non-emergency contact if: you have any medication questions Follow-up/Referrals: Pippa Portillo CRNP [Primary Care Provider] - Diet: Regular Addtl Attending Provider Instructions: ACTIVITY RECOMMENDATIONS: SELF CARE INSTRUCTIONS AFTER CERVICAL FUSIONS 1. No smoking. Smoking drastically decreases the chance of a solid fusion. 2. No bending, lifting more than 5 pounds, or twisting (roll like a log when turning in bed). 3. You may shower 3 days after surgery. Thoroughly dry wound. Do not soak in the tub. 4. Cervical collar: Must be worn at all times including sleeping. You may remove the brace only to bath, eat and if you are sitting in a recliner. 5. Please walk as much as you can for exercise. Gradually increase the distance that you walk as your endurance increases. SPECIAL CARE INSTRUCTIONS: VERY IMPORTANT TO READ AND REVIEW A. Do not take any anti-inflammatory medications (i.e. Indocin, Advil, Aspirin, Naprosyn, Aleve, Motrin, etc.) as these may inhibit the chance of a solid fusion. Tylenol is okay to take. B. Your surgical incision has been closed with a cosmetic suture under the skin that will dissolve in about 6 weeks. In 14 days, you can use a pair of clean scissors and cut the suture that is left outside of the skin at the ends of your incision. C. Complications are uncommon, but please contact us if you have any signs or symptoms of: 1. wound infection (fever higher than 102.5 degrees F, redness, separation of wound, drainage, or increasing pain from the incision) 2. blood clots in legs (pain, swelling, redness and warmth in legs) 3. urinary tract infection (fever higher than 102.5 degrees, burning upon urination or increased frequency of urination) 4. nerve problems (inability to walk on your toes or heels, numbness, loss of bowel or bladder control) 5. any other symptoms that concern you. D. Please call the office at if you have any concerns or questions about your operation or recovery. MANAGING PAIN AFTER SPINAL SURGERY 1. Narcotic medication is intended for short-term use and will be provided for surgical pain. Surgical pain usually lasts for a period of 4-6 weeks. Narcotic medication includes Percocet, Vicodin, Darvocet, Tylenol #3 or Lortab. 2. Longer-term pain is more appropriately treated with non-narcotic medication such as Tylenol ES. 3. Muscle spasm is not appropriately treated with narcotics. Muscle relaxers such as Soma, Flexeril or Skelaxin can be used along with Tylenol ES. 4. Remember that we all live with some "aches and pains". This is not unusual or uncommon after an injury or as we get older. 5. We will provide appropriate medication within the normal guidelines of their prescribed use. We will also be very cautious and aware of potential abuse and extended duration of patients' medication needs. 6. Please allow 2-3 days to process refills. Prescriptions will not be mailed but must be picked up at the office. FOLLOW UP VISIT: Keep your scheduled follow-up appointment. Any questions, please call the office at . Pending Studies at Discharge: No Stand-Alone Forms: My [facility], Smoking Cessation Medications and DC Order Prescriptions: New tramadol 50 mg tablet 50 mg PO Q6H PRN (Reason: pain, moderate) Qty: 20 RF: 0 oxycodone 5 mg tablet 5 mg PO Q6H PRN (Reason: pain, severe) Qty: 20 RF: 0 Continued One-A-Day Men's 50 Plus 400-20-370 mcg tablet 1 tab PO QAM RF: 0 oxycodone 5 mg tablet 5 mg PO Q8H PRN (Reason: Pain) RF: 0 omeprazole 20 mg Capsule,Delayed Release(Dr/Ec) 20 mg PO QAM RF: 0 lisinopril 5 mg tablet 5 mg PO QAM RF: 0 rosuvastatin 10 mg tablet 10 mg PO HS RF: 0 metformin 500 mg tablet extended release 24hr 500 mg PO TID RF: 0 Discharge Orders: Discharge Order (Routine); Ordered 09/13/21 Ordered By: Bernard Shah Admission Data Admit Date/Time: 09/11/21 09:02 Attending Provider: Bernard Shah Admit Provider: Bernard Shah Primary Care Provider: Pippa Portillo I. Other Providers: Diann Aguirre ; Bernard Shah ; Albino Estrada
[2021-09-13] MEDS ORDERED: bisacodyL 10 MG SUPP PR PRN (08:58)
[2021-09-13] MEDS ORDERED: INSULIN GLARGINE SOLOSTAR 100 UNITS/ML 3 ML PEN SC SCH (09:00)
[2021-09-13] MEDS: PANTOprazole 40 MG TAB PO SCH (09:05)
[2021-09-13] MEDS: lisinopril 5 MG TAB PO SCH (09:05)
[2021-09-13] MEDS: MULTIVITAMIN TAB PO SCH (09:05)
[2021-09-13] MEDS ORDERED: POTASSIUM CHLORIDE CRTAB 20 MEQ TABCR PO STA (09:39)
== END 2021-09-13 11:04 | disposition home or self-care (01) | DRG 473 ==
LOC: ED 06:53 → 3N 09:02